=== PATIENT | male | born 1970 | race Hispanic/Latino ===

== ENCOUNTER → 2017-10-06 | Outpatient (CLI) | payer BC ==
--- NOTE | 2017-10-06 18:12 | Diagnostic Imaging Report ---
PROCEDURE:L-SPINE COMPLETE COMPARISON:None. INDICATIONS:BACK PAIN, RADIATES DOWN LEFT HIP FINDINGS: There are 5 lumbar-type vertebral bodies. The vertebral bodies are well-aligned without evidence of spondylolisthesis. There are no displaced fractures, lytic or blastic lesions. Vertebral body heights are preserved. Mild intervertebral disc space narrowing L5-S1. Lateral oblique views show no spondylolysis. The sacroiliac joints are unremarkable. CONCLUSION: Mild degenerative disc changes L5-S1. Otherwise, unremarkable exam. Hira Molina M.D. Dictated by: Hira Molina M.D. on 10/06/2017 at 18:15 Electronically approved by: Hira Molina M.D. on 10/06/2017 at 18:15
--- NOTE | 2017-10-06 18:14 | Diagnostic Imaging Report ---
PROCEDURE:SACRUM X-RAY INDICATION:Back pain, radiating down left hip COMPARISON:None. FINDINGS: Normal mineralization. No acute, displaced fracture or dislocation. No lytic or blastic lesion. Sacral arches are well-preserved. Neural foramina are intact. Nonobstructive gas pattern. Soft tissues are unremarkable. CONCLUSION: No acute abnormalities. Hira Molina M.D. Dictated by: Hira Molina M.D. on 10/06/2017 at 18:17 Electronically approved by: Hira Molina M.D. on 10/06/2017 at 18:17
== END ==
LOC: RAD 12:45
PROVIDERS: ATTEND Internal Medicine
DX: M54.32 Sciatica, left side (principal)
CPT/HCPCS: 72110; 72220

== ENCOUNTER 2019-10-24 22:15 | Emergency (ER) | payer BC ==
[~2019-10-24] VITALS: Ht 177.8 cm; Wt 93.4 kg
--- NOTE | 2019-10-25 02:15 | Diagnostic Imaging Report ---
Exam: Head CT without contrast History: Tingling in left face and arm Comparison studies: Head CTs of 07/17/2011 and 11/05/2016 Technique: Axial images were obtained from the skull base to the vertex. Coronal and sagittal images reconstructed from the axial data. Dose modulation, iterative reconstruction, and/or weight based adjustment of the mA/kV was utilized to reduce the radiation dose to as low as reasonably achievable. Radiation dose: Total DLP: 728 mGy*cm. Estimated effective dose: DLP x 0.015 Intravenous contrast: None Findings: Scalp: No abnormalities. Bones: No fractures, blastic or lytic lesions. Brain sulci: Appropriate for age. Ventricles: Normal in size and configuration. No hydrocephalus. Extra-axial spaces: No masses, no fluid collection. Parenchyma: No abnormal densities. Incidental physiologic calcification in the left globus pallidus. No masses, acute hemorrhage, acute or chronic vascular insults. Sellar/suprasellar region: No abnormalities. Craniocervical junction: Patent foramen magnum. No Chiari one malformation. IMPRESSION: 1. No intracranial abnormalities. 2. No changes from remote exams which date to 07/17/2011. Signed by: Dr. Boom Lin M.D. on 10/25/2019 2:12 AM
--- NOTE | 2019-10-25 04:22 | Diagnostic Imaging Report ---
History: Radiculopathy Comparison studies: None Technique: Axial images were obtained through the cervical region. Coronal and sagittal images reconstructed from the axial data. Dose modulation, iterative reconstruction, and/or weight based adjustment of the mA/kV was utilized to reduce the radiation dose to as low as reasonably achievable. Intravenous contrast: None Findings: Atlantoaxial articulation: Intact. Alignment: Straightened cervical curvature may be positional. No subluxation. Cervicomedullary junction: No abnormalities. The foramen magnum is patent. Soft tissues: No gross acute abnormalities. Vertebrae: No fractures, infection or neoplasm. 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 Degenerative changes: Disc height is maintained. Small disc osteophyte complex at C5-C6 does not result in significant canal stenosis. Patent foramina. IMPRESSION: 1. No acute cervical spine abnormalities. 2. Spinal canal and neural foramina. 3. Ligament, spinal cord and or vascular abnormalities cannot be excluded on the basis of this examination Signed by: Dr. Boom Lin M.D. on 10/25/2019 4:19 AM
[2019-10-25] MEDS ORDERED: GABAPENTIN300 MG PO (04:52)
--- NOTE | 2019-10-25 05:13 | Emergency Department Note ---
History of Present Illnes History of Present Illness Chief Complaint: Neurological History of Present Illness This is a 49 year old male arrives to the ED with complaints of tingl ing over his left arm, denies any weakness or numbness. Patient states he was told he had cervical problems. Patient denies any chest pain, denies any shortness of breath, denies any slurred speech. Patient states this particular episode began 9 PM but he suppressions problem intermittently for several months. 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 Any updates have been documented here. Past Medical History Recent Fever: No Clinical Suspicion of Infectio: No New/Unexplained Change in Ment: No Past Medical History: Anxiety, GERD Other Medical History: ANXIETY ACID REFLUX Other Last Tetanus: UTD Review of Systems Review of Systems Constitutional: Reports no symptoms EENTM: Reports no symptoms Cardiovascular: Reports no symptoms Respiratory: Reports no symptoms Gastrointestinal: Reports no symptoms Genitourinary: Reports no symptoms Musculoskeletal: Reports as per HPI Integumentary: Reports no symptoms Neurological: Reports no symptoms Psychological: Reports no symptoms Endocrine: Reports no symptoms Hematological/Lymphatic: Reports no symptoms Physical Exam Related Data Allergies: Coded Allergies: No Known Drug Allergies (Verified Allergy, Mild, 11/05/16) Triage Vital Signs Vital Signs Date Time Temp Pulse Resp B/P (MAP) Pulse Ox O2 Delivery O2 Flow Rate FiO2 10/24/19 23:07 98.5 70 18 137/84 97 Vital signs reviewed: Yes Physical Exam CONSTITUTIONAL Constitutional: Present well-developed, Present well-nourished HENT HENT: Present normocephalic, Present atraumatic, Present oropharynx clear/moist, Present nose normal HENT L/R: Present left ext ear normal, Present right ext ear normal EYES Eyes: Reports PERRL, Reports conjunctivae normal NECK Neck: Present ROM normal PULMONARY Pulmonary: Present effort normal, Present breath sounds normal CARDIOVASCULAR Cardiovascular: Present regular rhythm, Present heart sounds normal, Present capillary refill normal, Present normal rate GASTROINTESTINAL Abdominal: Present soft, Present nontender, Present bowel sounds normal GENITOURINARY Genitourinary: Present exam deferred SKIN Skin: Present warm, Present dry MUSCULOSKELETAL Musculoskeletal: Present ROM normal NEUROLOGICAL Neurological: Present alert, Present oriented x 3, Present no gross motor or sensory deficits PSYCHOLOGICAL Psychological: Present mood/affect normal, Present judgement normal Results Imaging Imaging results reviewed: Yes Imaging Comments IMPRESSION: 1. No acute cervical spine abnormalities. 2. Spinal canal and neural foramina. 3. Ligament, spinal cord and or vascular abnormalities cannot be excluded on the basis of this examination IMPRESSION: 1. No intracranial abnormalities. 2. No changes from remote exams which date to 07/17/2011. Signed by: Dr. Boom Lin M.D. on 10/25/2019 2:12 AM Assessment & Plan Medical Decision Making MDM 49-year-old male arrives to the ED with complaints of left fourth and fifth digit tingling, history of radiculopathy in the past Assessment & Plan Final Impression: (1) Cervical radiculopathy Depart Disposition: HOME, SELF-CARE Last Vital Signs Date Time Temp Pulse Resp B/P (MAP) Pulse Ox O2 Delivery O2 Flow Rate FiO2 10/24/19 23:07 98.5 70 18 137/84 97 Home Meds Active Scripts Gabapentin (GABAPENTIN) 300 Mg Capsule, 300 MG PO BID, #60 CAP Prov:JERRELL NEAL DO 10/25/19 JERRELL NEAL DO Oct 25, 2019 05:13
== END 2019-10-25 05:42 | disposition home or self-care (01) ==
LOC: ER 10-25 00:07
DX: M54.12 Radiculopathy, cervical region (principal); F41.9 Anxiety disorder, unspecified; K21.9 Gastro-esophageal reflux disease without esophagitis
CPT/HCPCS: 70450; 72125; 99283

== ENCOUNTER 2020-05-17 09:25 | Emergency (ER) | payer BC ==
[~2020-05-17] VITALS: Ht 177.8 cm; Wt 93.0 kg
[~2020-05-17 09:25] MED LIST: GABAPENTIN300 MG PO
== END 2020-05-17 12:01 | disposition home or self-care (01) ==
LOC: ER 09:45
DX: H92.02 Otalgia, left ear (principal); R20.0 Anesthesia of skin; F41.9 Anxiety disorder, unspecified; K21.9 Gastro-esophageal reflux disease without esophagitis
CPT/HCPCS: 70480; 99284

== ENCOUNTER 2020-06-10 08:55 | Emergency (ER) | payer BC ==
[~2020-06-10] VITALS: Ht 177.8 cm; Wt 93.0 kg
[2020-06-10] MEDS ORDERED: DIAZEPAM 5 MG TAB PO ONE (10:00)
[2020-06-10] MEDS ORDERED: ACETAMIN/BUTALBITAL/CAFFEINE TAB PO ONE (10:00)
== END 2020-06-10 10:10 | disposition home or self-care (01) ==
LOC: ER 09:14
DX: F41.9 Anxiety disorder, unspecified (principal); R51.9 Headache, unspecified; R20.0 Anesthesia of skin; K21.9 Gastro-esophageal reflux disease without esophagitis
CPT/HCPCS: 70450; 99283

== ENCOUNTER 2020-07-12 18:07 | Emergency (ER) | payer BC ==
[~2020-07-12] VITALS: Ht 177.8 cm; Wt 93.4 kg
[2020-07-12] MEDS ORDERED: KETOROLAC TROMETHAMINE 30 MG/ML VIAL IV STA (18:16)
[2020-07-12 18:53] LABS: BASOPHILS # (AUTO) 0.1 (0.0-0.1); BASOPHILS % 0.8 % (0.0-1.0); EOSINOPHILS # (AUTO) 0.2 (0.0-0.4); EOSINOPHILS % 2.6 % (0.0-6.0); HEMATOCRIT 43.1 % (38.2-49.6); LYMPHOCYTES # (AUTO) 1.9 (1.0-3.2); LYMPHOCYTES % 24.5 % (18.0-39.1); MEAN CORPUSCULAR HGB CONC 32.5 g/dL (31-35); MEAN CORPUSCULAR VOLUME 89.4 fL (81-99); MONOCYTES # (AUTO) 0.7 (0.2-0.8); NEUTROPHILS # (AUTO) 4.9 (2.1-6.9); NEUTROPHILS % 62.5 % (38.7-80.0); PLATELET COUNT 343 x10e3/uL (140-360); RED BLOOD COUNT 4.82 x10e6/uL (4.3-5.7); RED CELL DISTRIBUTION WIDTH 12.9 % (11.7-14.4)
[2020-07-12 18:57] LABS: INR 0.88; PROTHROMBIN TIME 12.4 seconds (11.9-14.5)
[2020-07-12 18:58] LABS: PARTIAL THROMBOPLASTIN TIME 27.3 seconds (23.8-35.5)
[2020-07-12 19:08] LABS: ALANINE AMINOTRANSFERASE 18 IU/L (0-55); ALBUMIN 4.2 g/dL (3.5-5.0); ALKALINE PHOSPHATASE 135 IU/L (40-150); ANION GAP 12.9 mmol/L (8-16); BLOOD UREA NITROGEN 16 mg/dL (7-26); BUN/CREATININE RATIO 19 (6-25); CALCIUM 8.9 mg/dL (8.4-10.2); CARBON DIOXIDE 25 mmol/L (22-29); CHLORIDE 105 mmol/L (98-107); CREATINE KINASE 114 IU/L (30-200); CREATININE, SERUM 0.84 mg/dL (0.72-1.25); EST GLOMERULAR FILTRATION RATE > 60 ML/MIN (60-); GLUCOSE 89 mg/dL (74-118); POTASSIUM 3.9 mmol/L (3.5-5.1); SODIUM 139 mmol/L (136-145)
== END 2020-07-12 20:57 | disposition home or self-care (01) ==
LOC: ER 18:28
DX: R07.89 Other chest pain (principal); F41.9 Anxiety disorder, unspecified; K21.9 Gastro-esophageal reflux disease without esophagitis; R94.31 Abnormal electrocardiogram [ECG] [EKG]
CPT/HCPCS: 36415; 71045; 80053; 82550; 82553; 84484; 85025; 85610; 85730; 93005; 99284; J1885

== ENCOUNTER 2020-08-12 18:09 | Emergency (ER) | payer BC ==
[~2020-08-12] VITALS: Ht 177.8 cm; Wt 93.4 kg
[2020-08-12] MEDS ORDERED: KETOROLAC TROMETHAMINE 30 MG/ML VIAL IV STA (18:23)
[2020-08-12 18:31] LABS: BASOPHILS # (AUTO) 0.1 (0.0-0.1); BASOPHILS % 0.9 % (0.0-1.0); EOSINOPHILS # (AUTO) 0.3 (0.0-0.4); EOSINOPHILS % 3.1 % (0.0-6.0); HEMATOCRIT 44.5 % (38.2-49.6); HEMOGLOBIN 14.8 g/dL (14.0-18.0); LYMPHOCYTES # (AUTO) 2.2 (1.0-3.2); LYMPHOCYTES % 23.4 % (18.0-39.1); MEAN CORPUSCULAR HEMOGLOBIN 29.2 pg (28-32); MEAN CORPUSCULAR HGB CONC 33.3 g/dL (31-35); MEAN CORPUSCULAR VOLUME 87.8 fL (81-99); MONOCYTES # (AUTO) 0.9 (0.2-0.8); MONOCYTES % 9.2 % (4.4-11.3); NEUTROPHILS # (AUTO) 5.8 (2.1-6.9); NEUTROPHILS % 62.4 % (38.7-80.0); PLATELET COUNT 365 x10e3/uL (140-360); RED BLOOD COUNT 5.07 x10e6/uL (4.3-5.7); RED CELL DISTRIBUTION WIDTH 12.9 % (11.7-14.4)
[2020-08-12 18:48] LABS: ALANINE AMINOTRANSFERASE 24 IU/L (0-55); ALBUMIN 4.3 g/dL (3.5-5.0); ALBUMIN/GLOBULIN RATIO 1.1 (0.8-2.0); ALKALINE PHOSPHATASE 163 IU/L (40-150); ANION GAP 14.7 mmol/L (8-16); BLOOD UREA NITROGEN 16 mg/dL (7-26); BUN/CREATININE RATIO 17 (6-25); CALCIUM 8.9 mg/dL (8.4-10.2); CARBON DIOXIDE 26 mmol/L (22-29); CHLORIDE 101 mmol/L (98-107); CREATINE KINASE 170 IU/L (30-200); CREATININE, SERUM 0.92 mg/dL (0.72-1.25); EST GLOMERULAR FILTRATION RATE > 60 ML/MIN (60-); GLUCOSE 88 mg/dL (74-118); POTASSIUM 3.7 mmol/L (3.5-5.1); SODIUM 138 mmol/L (136-145)
[2020-08-12 19:54] VITALS: BP 132/76
== END 2020-08-12 19:55 | disposition home or self-care (01) ==
LOC: ER 18:18
DX: R07.89 Other chest pain (principal); R06.02 Shortness of breath; F41.9 Anxiety disorder, unspecified; K21.9 Gastro-esophageal reflux disease without esophagitis
CPT/HCPCS: 36415; 71045; 80053; 82550; 82553; 84484; 85025; 93005; 99284; J1885

== ENCOUNTER 2020-09-14 22:35 | Emergency (ER) | payer BC ==
[~2020-09-14] VITALS: Ht 177.8 cm; Wt 93.4 kg
[2020-09-14] MEDS ORDERED: ASPIRIN 81 MG CHEW TAB PO STA (22:47)
[2020-09-14] MEDS ORDERED: ASPIRIN 81 MG CHEW TAB PO ONE (23:00)
[2020-09-14 23:25] LABS: BASOPHILS # (AUTO) 0.1 (0.0-0.1); BASOPHILS % 0.7 % (0.0-1.0); EOSINOPHILS # (AUTO) 0.4 (0.0-0.4); EOSINOPHILS % 4.7 % (0.0-6.0); HEMATOCRIT 41.8 % (38.2-49.6); HEMOGLOBIN 13.5 g/dL (14.0-18.0); LYMPHOCYTES # (AUTO) 2.1 (1.0-3.2); LYMPHOCYTES % 24.6 % (18.0-39.1); MEAN CORPUSCULAR HEMOGLOBIN 28.8 pg (28-32); MEAN CORPUSCULAR HGB CONC 32.3 g/dL (31-35); MEAN CORPUSCULAR VOLUME 89.1 fL (81-99); MONOCYTES # (AUTO) 0.7 (0.2-0.8); MONOCYTES % 8.5 % (4.4-11.3); NEUTROPHILS # (AUTO) 5.1 (2.1-6.9); NEUTROPHILS % 60.7 % (38.7-80.0); PLATELET COUNT 348 x10e3/uL (140-360); RED BLOOD COUNT 4.69 x10e6/uL (4.3-5.7); RED CELL DISTRIBUTION WIDTH 12.9 % (11.7-14.4)
[2020-09-14 23:46] LABS: ALANINE AMINOTRANSFERASE 29 IU/L (0-55); ALBUMIN/GLOBULIN RATIO 1.1 (0.8-2.0); ALKALINE PHOSPHATASE 145 IU/L (40-150); ANION GAP 14.3 mmol/L (8-16); BLOOD UREA NITROGEN 27 mg/dL (7-26); BUN/CREATININE RATIO 33 (6-25); CALCIUM 8.7 mg/dL (8.4-10.2); CARBON DIOXIDE 23 mmol/L (22-29); CHLORIDE 106 mmol/L (98-107); CREATINE KINASE 134 IU/L (30-200); CREATININE, SERUM 0.82 mg/dL (0.72-1.25); EST GLOMERULAR FILTRATION RATE > 60 ML/MIN (60-); GLUCOSE 103 mg/dL (74-118); POTASSIUM 3.3 mmol/L (3.5-5.1); SODIUM 140 mmol/L (136-145)
[2020-09-15 03:10] LABS: BACTERIA,URINE FEW /HPF; CLARITY,URINE CLEAR (CLEAR); COLOR,URINE YELLOW (YELLOW); EPITHELIAL CELLS,URINE FEW /LPF; KETONES,URINE NEGATIVE (NEGATIVE); LEUKOCYTE ESTERASE ,URINE NEGATIVE (NEGATIVE); NITRITE,URINE NEGATIVE (NEGATIVE); PROTEIN,URINE DIPSTICK NEGATIVE (NEGATIVE); RBC,URINE 0-5 /HPF (0-5); URINE UROBILINOGEN 1 mg/dL (0.2 - 1); WBC,URINE (MAN) 0-5 /HPF (0-5)
[2020-09-15] MEDS ORDERED: IOPAMIDOL 370 MG/ML 200 ML INFUS..BTL INJ ONE (06:24)
[2020-09-15] MEDS ORDERED: SODIUM CHLORIDE 0.9% 50ML 50 ML ONE (06:24)
== END 2020-09-15 03:15 | disposition home or self-care (01) ==
LOC: ER 23:18
DX: R00.2 Palpitations (principal); R94.31 Abnormal electrocardiogram [ECG] [EKG]; F41.9 Anxiety disorder, unspecified; K21.9 Gastro-esophageal reflux disease without esophagitis
CPT/HCPCS: 36415; 71045; 71260; 80053; 81001; 82550; 82553; 83880; 84484; 85025; 93005; 99284; Q9967

== ENCOUNTER 2021-01-02 08:29 | Emergency (ER) | payer BC ==
[~2021-01-02] VITALS: Ht 172.7 cm; Wt 72.6 kg
[2021-01-02] MEDS ORDERED: SODIUM CHLORIDE 0.9% 1000ML 1,000 ML IV STA (09:15)
[2021-01-02 09:22] LABS: BASOPHILS # (AUTO) 0.1 (0.0-0.1); BASOPHILS % 0.9 % (0.0-1.0); EOSINOPHILS # (AUTO) 0.3 (0.0-0.4); EOSINOPHILS % 4.1 % (0.0-6.0); HEMATOCRIT 45.5 % (38.2-49.6); HEMOGLOBIN 14.6 g/dL (14.0-18.0); LYMPHOCYTES # (AUTO) 1.3 (1.0-3.2); LYMPHOCYTES % 20.6 % (18.0-39.1); MEAN CORPUSCULAR HGB CONC 32.1 g/dL (31-35); MEAN CORPUSCULAR VOLUME 90.5 fL (81-99); MONOCYTES # (AUTO) 0.6 (0.2-0.8); MONOCYTES % 9.9 % (4.4-11.3); NEUTROPHILS % 63.6 % (38.7-80.0); PLATELET COUNT 341 x10e3/uL (140-360); RED BLOOD COUNT 5.03 x10e6/uL (4.3-5.7)
[2021-01-02 09:42] LABS: ALBUMIN 4.1 g/dL (3.5-5.0); ALBUMIN/GLOBULIN RATIO 1.2 (0.8-2.0); ANION GAP 14.9 mmol/L (8-16); CREATININE, SERUM 0.83 mg/dL (0.72-1.25); MAGNESIUM 1.9 MG/DL (1.3-2.1); POTASSIUM 3.9 mmol/L (3.5-5.1)
[2021-01-02 10:02] LABS: CREATINE KINASE MB 1.2 ng/mL (0-5.0); THYROID STIMULATING HORMONE 1.708 uIU/mL (0.350-4.940)
== END 2021-01-02 12:18 | disposition home or self-care (01) ==
LOC: ER 08:56
DX: R00.2 Palpitations (principal); K21.9 Gastro-esophageal reflux disease without esophagitis; F41.9 Anxiety disorder, unspecified; Z20.822 Contact with and (suspected) exposure to COVID-19
CPT/HCPCS: 36415; 71045; 80053; 82550; 82553; 83735; 84443; 84484; 85025; 85379; 93005; 99284; J7030; U0002

== ENCOUNTER 2022-06-03 15:37 | Emergency (ER) | payer SELFPAY ==
[~2022-06-03] VITALS: Ht 177.8 cm; Wt 96.2 kg
[2022-06-03 17:40] VITALS: BP 132/71
== END 2022-06-03 16:50 | disposition home or self-care (01) ==
LOC: ER 16:14
DX: Z77.028 Contact with and (suspected) exposure to other hazardous aromatic compounds (principal); K21.9 Gastro-esophageal reflux disease without esophagitis; F41.9 Anxiety disorder, unspecified
CPT/HCPCS: 99283

== ENCOUNTER 2022-09-15 08:21 | Emergency (ER) | payer SELFPAY ==
[~2022-09-15] VITALS: Ht 177.8 cm; Wt 97.5 kg
[2022-09-15 08:32] VITALS: O2SAT 100
[2022-09-15 09:00] LABS: BASOPHILS # (AUTO) 0.1 (0.0-0.1); EOSINOPHILS # (AUTO) 0.7 (0.0-0.4); EOSINOPHILS % 8.6 % (0.0-6.0); HEMATOCRIT 44.3 % (38.2-49.6); HEMOGLOBIN 14.5 g/dL (14.0-18.0); LYMPHOCYTES # (AUTO) 1.4 (1.0-3.2); LYMPHOCYTES % 17.1 % (18.0-39.1); MEAN CORPUSCULAR HEMOGLOBIN 29.7 pg (28-32); MEAN CORPUSCULAR HGB CONC 32.7 g/dL (31-35); MEAN CORPUSCULAR VOLUME 90.8 fL (81-99); MONOCYTES # (AUTO) 0.6 (0.2-0.8); NEUTROPHILS # (AUTO) 5.1 (2.1-6.9); NEUTROPHILS % 63.7 % (38.7-80.0); PLATELET COUNT 324 x10e3/uL (140-360); RED BLOOD COUNT 4.88 x10e6/uL (4.3-5.7); RED CELL DISTRIBUTION WIDTH 13.2 % (11.7-14.4)
[2022-09-15 09:13] LABS: INR 0.9; PROTHROMBIN TIME 12.6 seconds (11.9-14.5)
[2022-09-15 09:14] LABS: PARTIAL THROMBOPLASTIN TIME 27.8 seconds (23.8-35.5)
[2022-09-15 09:21] LABS: ALANINE AMINOTRANSFERASE 29 IU/L (0-55); ALBUMIN/GLOBULIN RATIO 1.1 (0.8-2.0); ALKALINE PHOSPHATASE 142 IU/L (40-150); BLOOD UREA NITROGEN 19 mg/dL (7-26); BUN/CREATININE RATIO 23 (6-25); CALCIUM 8.9 mg/dL (8.4-10.2); CARBON DIOXIDE 25 mmol/L (22-29); CHLORIDE 107 mmol/L (98-107); CREATININE, SERUM 0.84 mg/dL (0.72-1.25); GLUCOSE 104 mg/dL (74-118); MAGNESIUM 2.1 MG/DL (1.3-2.1); SODIUM 140 mmol/L (136-145)
[2022-09-15] MEDS ORDERED: DONNATAL/LIDOCAINE/MAALOX 30 ML SUSP PO ONE (11:45)
[2022-09-15] MEDS ORDERED: PANTOPRAZOLE SO40 MG PO (11:54)
== END 2022-09-15 12:31 | disposition home or self-care (01) ==
LOC: ER 08:24
DX: R07.89 Other chest pain (principal); K21.9 Gastro-esophageal reflux disease without esophagitis; F41.9 Anxiety disorder, unspecified
CPT/HCPCS: 36415; 71045; 80053; 83735; 84484; 85025; 85379; 85610; 85730; 93005; 99283